=== PATIENT | male | born 1975 | race Caucasian/White ===

== ENCOUNTER → 2018-02-23 | Outpatient (REF) | payer OTHER ==
[2018-02-23 14:41] LABS: ERYTHROCYTE SEDIMENTATION RATE 4 mm/hr (0-15)
[2018-02-23 14:43] LABS: FOLATE 10.7 NG/ML; FREE T4 1.09 NG/DL (0.76-1.46); RHEUMATOID FACTOR QUANT < 10.0 IU/ML (<15.0); TOTAL PROTEIN 7.2 GM/DL (6.4-8.2)
[2018-02-23 16:29] LABS: ESTIMATED AVERAGE GLUCOSE 100 MG/DL (60-110); HEMOGLOBIN A1c 5.1 %
[2018-02-24 10:29] LABS: DRVV SCREEN 37.4 SEC; PTT LUPUS TYPE ANTICOAG SCREEN 0.9 (0-1.2)
[2018-02-24 13:43] LABS: ALBUMIN 4.69 GM/DL (3.29-5.55); ALBUMIN % 65.2 % (55.8-66.1); ALPHA-1-GLOBULIN % 3.7 % (2.9-4.9); ALPHA-1-GLOBULINS 0.27 GM/DL (0.17-0.41); ALPHA-2-GLOBULINS 0.63 GM/DL (0.42-0.99); ALPHA-2-GLOBULINS % 8.7 % (7.1-11.8); BETA-1-GLOBULINS 0.35 GM/DL (0.28-0.60); BETA-1-GLOBULINS % 4.9 % (4.7-7.2); BETA-2-GLOBULINS 0.29 GM/DL (0.19-0.55); GAMMA GLOBULIN % 13.5 % (11.1-18.8)
[2018-02-24 13:44] LABS: GAMMA GLOBULINS 0.97 GM/DL (0.65-1.58)
[2018-02-26 08:06] LABS: ANTINUCLEAR ANTIBODIES DIRECT Negative (Negative); Lyme Disease IgG/IgM Antibodie <0.91 ISR (0.00-0.90); Lyme Disease IgM Ab Quantitati <0.80 index (0.00-0.79); VITAMIN B1 LEVEL WHOLE BLOOD 101.3 nmol/L (66.5-200.0); VITAMIN B6,PYRIDOXAL PHOSPHATE 14.4 ug/L (5.3-46.7); VITAMIN E(ALPHA TOCOPHEROL) 8.8 mg/L (7.0-25.1); VITAMIN E(GAMMA TOCOPHEROL) 0.9 mg/L (0.5-5.5)
== END ==
LOC: M LABNEURO 08:36
DX: R20.0 Anesthesia of skin (principal); M79.603 Pain in arm, unspecified; M79.669 Pain in unspecified lower leg